=== PATIENT | male | born 1995 | race Caucasian/White ===

== ENCOUNTER 2021-01-03 19:48 | Emergency (ER) | payer OTHER ==
[~2021-01-03] VITALS: Ht 167.6 cm; Wt 82.0 kg
[2021-01-03 20:26] VITALS: BP 126/74
== END 2021-01-03 20:45 | disposition home or self-care (01) ==
LOC: ER 20:08
DX: Z00.00 Encounter for general adult medical examination without abnormal findings (principal)
CPT/HCPCS: 99283